=== PATIENT | female | born 1980 | race Caucasian/White ===

== ENCOUNTER 2017-12-16 09:24 | Outpatient (RCR) | payer MEDICARE, OTHER, MEDICAID ==
[2017-12-09 09:30] VITALS: BP 97/66
[2017-12-09 09:44] LABS: PLATELET COUNT, AUTOMATED 332 K/uL (150-450)
[~2017-12-16 09:24] MED LIST: ACET500T68 PO; ASPI-682 PO; ATOR20TA22 PO; BACOUD TP; CALC-649 PO; CALC-707 PO; CETY454C2 TP; CLOT30CR TP; DOCU-416 PO; FLU10 PO; FLUO-202 PO; GUAI-244 PO; HYDR-3078 PO; HYDR28.486 TP; IBUP-56 PO; KET10 PO; LAMO100T56 PO; LIT300CAP PO; LOPE-84 PO; LURA40TA3 PO; MENT118G; METF500T4 PO; MOM PO; MULT1CAP59 PO; NAPR220C11 PO; OMEG-23 PO; ONDA4TAB PO; OXYB10TA16 PO; PSYL575P5 PO; SODI30SP6 NS
[2017-12-16 09:30] VITALS: BP 107/75
--- NOTE | 2017-12-16 15:46 | ONCOLOGY FOLLOW UP NOTE ---
EVENT DATE: December 16, 2017 DIAGNOSIS Neutrophilic leukocytosis. CHIEF COMPLAINT Patient is here today for followup of her neutrophilic leukocytosis. HEMATOLOGY HISTORY Patient is a 36-year-old female who is followed by Gricelda Bond, her primary care provider. She is from the [facility] with cerebral palsy and low IQ. Patient was found to have leukocytosis. Her CBC showed white count of 11.6, hemoglobin 13.8, hematocrit 42.3%, platelet count was normal at 354,000, and ANC was 8.5. Leukocyte alkaline phosphatase score was done and it came back at the upper limits of normal at 130. Patient denies any constitutional symptoms. HISTORY OF PRESENT ILLNESS Patient is here today for followup of her neutrophilic leukocytosis. She has occasional vomiting and constipation, but other than that she is really doing very well and does not have any other complaints. PAST MEDICAL HISTORY 1. History of seizure, status post hemisphereotomy. 2. Cerebral palsy. 3. Anxiety. 4. History of fractured bones in the past. 5. 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 PAST SURGICAL HISTORY 1. Tubal ligation. 2. Hemisphereotomy. 3. Surgeries for broken bones in the past. FAMILY HISTORY Maternal grandmother had breast cancer. SOCIAL HISTORY Patient is single with no children. She is a resident of the [facility] because of her cerebral palsy and mild mental retardation. She works for the [employer]. Denies any abuse of tobacco, alcohol or drugs. CURRENT MEDICATIONS 1. Lomotil 2 mg p.r.n. for diarrhea. 2. Atorvastatin 20 mg daily. 3. Calcium and vitamin D supplement. 4. Docusate 100 mg p.r.n. for constipation. 5. Excedrin p.r.n. for headache. 6. Fish oil supplement. 7. Fluoxetine 10 mg once daily. 8. Ibuprofen p.r.n. 9. Lamotrigine 100 mg twice daily. 10. Latuda 40 mg once daily. 11. [place] carbonate 300 mg two capsules daily. 12. Metamucil. 13. Metformin 500 mg twice daily. 14. Milk of magnesia 30 mL p.r.n. for constipation. 15. Multivitamins. 16. Oxybutynin 10 mg once daily. 17. Prozac 20 mg once daily. 18. Robafen 100 mg/5 mL syrup as needed. ALLERGIES CODEINE which caused vomiting. REVIEW OF SYSTEMS CONSTITUTIONAL: No appetite or weight change. No fever, chills or sweating. No recent infection. HEENT: Ears: No tinnitus or hearing problem. Nose: Patient has occasional epistaxis. Throat: No sore throat or mouth ulcers. Eyes: No diplopia or visual changes. RESPIRATORY: She has a dry cough and occasional shortness of breath. CARDIOVASCULAR: No chest pain, orthopnea, or paroxysmal nocturnal dyspnea (PND) . No edema. No palpitations. GASTROINTESTINAL: She has occasional vomiting and constipation. GENITOURINARY: No hematuria or dysuria. MUSCULOSKELETAL: No pain in the muscles, joints or bones. NEUROLOGICAL: She has some numbness in her hands and occasional headache. HEMATOLOGICAL: She is weak, tired and fatigued. SKIN: No skin rash or lumps. PSYCHIATRIC: No anxiety or depression. PHYSICAL EXAMINATION GENERAL: Looks stable. Well-developed, well-nourished, and in no acute distress. VITAL SIGNS: Blood pressure 107/75, pulse 60, per minute, respirations 16 per minute, temperature 97.1, pulse ox 90% on room air. HEENT: Head: Atraumatic. No sinus tenderness to palpation. Eyes: No icterus or conjunctivitis. Mouth and throat: No oral thrush or mucositis. NECK: Supple. No cervical or supraclavicular lymphadenopathy. LUNGS: Clear to auscultation and percussion bilaterally. HEART: Regular rate and rhythm. No gallops, murmurs, clicks or rubs. ABDOMEN: Soft and lax. No tenderness. No hepatosplenomegaly. No masses. EXTREMITIES: There is deformity of her right hand. The patient cannot use the right hand at all. LYMPHATICS: No peripheral lymphadenopathy. NEUROLOGICAL: Patient is conscious and alert. She had some deformity of her right upper extremity. PSYCHIATRIC: Mood and affect appear normal. SKIN: No skin rash, bruise or purpuric eruption. DIAGNOSTIC DATA CBC showed white count 9.1, hemoglobin 14.4, hematocrit 41.7%, platelets 332, 000. ASSESSMENT Neutrophilic leukocytosis, most probably reactive in nature. Her current white count is 9.1, which is down from 10.7, which was down from 11.6. Patient is doing very well currently. Her leukocyte alkaline phosphatase score was high normal at 130. There is no evidence of myeloproliferative disorder. With normalization of her neutrophilic leukocytosis, I am planning to refer the patient back to her primary care physician, JAMES Donald. I will be more than happy to see her in the future if she will develop any hematologic abnormalities. PLAN 1. Continue followup. 2. Patient to continue followup her primary care provider, Gricelda Bond. 3. Patient is to contact us for any new concerns or complaints. KRANTHI
== END 2017-12-20 10:12 | disposition home or self-care (01) ==
LOC: ONC 09:24
PROVIDERS: ATTEND Internal Medicine Hematology
DX: D72.828 Other elevated white blood cell count (principal); G80.9 Cerebral palsy, unspecified; Z79.899 Other long term (current) drug therapy; R53.1 Weakness; R53.83 Other fatigue
CPT/HCPCS: 36415; 85025; G0463; 99212